=== PATIENT | female | born 1995 | race Asian ===

== ENCOUNTER 2022-03-15 09:58 | Emergency (ER) | payer MEDICAID, OTHER ==
[~2022-03-15] VITALS: Ht 154.9 cm; Wt 60.9 kg
[2022-03-15 11:45] LABS: COVID AG,FIA SOURCE NASAL SWAB
[2022-03-15] MEDS ORDERED: OXYMETAZOLINE HCL 0.05% 15 ML NASAL SPRAY NASAL ONE (12:00)
[2022-03-15 12:39] VITALS: BP 127/86
[2022-03-15] MEDS ORDERED: BENZ-70 PO (12:43)
== END 2022-03-15 13:15 | disposition home or self-care (01) ==
LOC: EMS 10:06
DX: J06.9 Acute upper respiratory infection, unspecified (principal); Z20.822 Contact with and (suspected) exposure to COVID-19
CPT/HCPCS: 71046; 99284

== ENCOUNTER 2022-03-29 15:21 | Emergency (ER) | payer MEDICAID ==
[~2022-03-29] VITALS: Ht 154.9 cm; Wt 60.9 kg
[~2022-03-29 15:21] MED LIST: BENZ-70 PO
[2022-03-29 15:25] VITALS: BP 108/58
[2022-03-29] MEDS ORDERED: P-EP-24 PO (16:24)
[2022-03-29] MEDS ORDERED: AZIT250T9 PO (16:25)
== END 2022-03-29 16:36 | disposition home or self-care (01) ==
LOC: EMS 15:21
DX: J18.9 Pneumonia, unspecified organism (principal); Z79.899 Other long term (current) drug therapy
CPT/HCPCS: 99283; Z7502